=== PATIENT | female | born 1970 | race Caucasian/White ===

== ENCOUNTER 2019-06-11 15:56 | Emergency (ER) | payer OTHER, MEDICARE ==
[~2019-06-11] VITALS: Ht 160 cm; Wt 68.0 kg
[~2019-06-11 15:56] MED LIST: LORA1 PO; Minipress1 MG PO; Naprosyn500 MG PO; Robaxin500 MG PO; TRAM50 PO
[2019-06-11 17:45] LABS: BASOPHILS ABSOLUTE AUTO 0.03 K/mm3 (0.00-0.23); BASOPHILS PERCENT AUTO 0 % (0-2); EOSINOPHILS PERCENT AUTO 1 % (0-6); Hematocrit 40.2 % (33.0-51.0); Hemoglobin 13.2 g/dL (11.5-16.0); IMMATURE GRAN ABSOLUTE AUTO 0.02 K/mm3 (0.00-0.10); IMMATURE GRAN PERCENT AUTO 0 % (0-1); LYMPHOCYTES ABSOLUTE AUTO 1.74 K/mm3 (0.84-5.20); LYMPHOCYTES PERCENT AUTO 18 % (21-46); MONOCYTES ABSOLUTE AUTO 0.69 K/mm3 (0.16-1.47); MONOCYTES PERCENT AUTO 7 % (4-13); Mean Corpuscular HGB 29.5 pg (26.0-34.0); Mean Corpuscular HGB Conc 32.8 g/dL (31.5-36.5); Mean Corpuscular Volume 90 fL (80-100); Mean Platelet Volume 10.2 fL (9.1-12.4); NEUTROPHILS PERCENT AUTO 74 % (41-73); Platelet Count 277 K/mm3 (150-400); RDW Coefficient Variation 12.1 % (11.7-14.2); RDW Standard Deviation 39.9 fL (35.1-46.3); Red Blood Cell Count 4.47 M/mm3 (3.80-5.20); White Blood Cell Count 9.78 K/mm3 (4.00-11.30)
[2019-06-11 18:01] LABS: Alanine Aminotransfer (ALT/SGP 14 U/L (12-78); Albumin, Blood 3.9 g/dL (3.4-5.0); Albumin/Globulin Ratio 1.3 (0.8-1.8); Alk Phos 49 U/L (50-136); Anion Gap 6 mmol/L (6-16); Aspartate Aminotrans (AST/SGOT 13 U/L (12-37); Bilirubin, Total 0.8 mg/dL (0.1-1.0); Blood Urea Nitrogen 15 mg/dL (8-24); Bun/Creatinine Ratio 15.1 (12.0-20.0); CO2, Blood 27 mmol/L (21-32); Calcium, Blood 9.2 mg/dL (8.5-10.1); Chloride, Blood 107 mmol/L (98-108); Creatinine, Blood 0.99 mg/dL (0.40-1.00); Ethanol (Alcohol), Blood, Med <3 mg/dL; Globulin, Blood 3.1 g/dL (2.2-4.0); Glomerular Filtration Rate >60 (60-); Glucose, Blood 75 mg/dL (70-99); Potassium, Blood 3.9 mmol/L (3.5-5.5); Sodium, Blood 140 mmol/L (136-145)
[2019-06-11 18:12] LABS: U Amphetamine Screen Not Detected; U Barbituate Screen Not Detected; U Benzodiazapine Screen Not Detected; U Buprenorphine Screen Not Detected; U Cannabinoids Screen Not Detected; U Cocaine Screen Not Detected; U Methadone Screen Not Detected; U Methamphetamine Screen Not Detected; U Opiates Screen Not Detected; U Oxycodone Screen Not Detected; U Phencyclidine Screen Not Detected; U Propoxyphene Screen Not Detected
== END 2019-06-11 18:47 | disposition home or self-care (01) ==
LOC: ER 15:56
PROVIDERS: Emergency Medicine
DX: S09.90XA Unspecified injury of head, initial encounter (principal); S80.12XA Contusion of left lower leg, initial encounter; S20.219A Contusion of unspecified front wall of thorax, initial encounter; V43.52XA Car driver injured in collision with other type car in traffic accident, initial encounter; Z88.0 Allergy status to penicillin; Z79.899 Other long term (current) drug therapy; F31.9 Bipolar disorder, unspecified; F17.200 Nicotine dependence, unspecified, uncomplicated
CPT/HCPCS: 36415; 70450; 71046; 73590; 80053; 82947; 85025; 99284-25; G0480

== ENCOUNTER 2019-06-24 10:16 | Emergency (ER) | payer OTHER, MEDICARE ==
[~2019-06-24] VITALS: Ht 160 cm; Wt 63.5 kg
[2019-06-24] MEDS ORDERED: KETO10 PO (11:22)
[2019-06-24] MEDS ORDERED: CYCL10 PO (11:22)
[2019-06-24] MEDS ORDERED: Mobic15 MG PO (11:26)
== END 2019-06-24 11:33 | disposition home or self-care (01) ==
LOC: ER 10:16
DX: M23.92 Unspecified internal derangement of left knee (principal); S80.12XD Contusion of left lower leg, subsequent encounter; F31.9 Bipolar disorder, unspecified; F20.9 Schizophrenia, unspecified; E16.2 Hypoglycemia, unspecified; F17.200 Nicotine dependence, unspecified, uncomplicated; Z88.0 Allergy status to penicillin; Z79.1 Long term (current) use of non-steroidal anti-inflammatories (NSAID); Z79.899 Other long term (current) drug therapy; V49.40XD Driver injured in collision with unspecified motor vehicles in traffic accident, subsequent encounter
CPT/HCPCS: 99283

== ENCOUNTER 2019-06-28 18:33 | Emergency (ER) | payer OTHER, MEDICARE ==
[~2019-06-28] VITALS: Ht 160 cm; Wt 68.0 kg
[~2019-06-28 18:33] MED LIST changes: +CYCL10 PO; +KETO10 PO; +Mobic15 MG PO
== END 2019-06-28 20:34 | disposition home or self-care (01) ==
LOC: ER 18:33
DX: S93.402A Sprain of unspecified ligament of left ankle, initial encounter (principal); S93.401A Sprain of unspecified ligament of right ankle, initial encounter; F31.9 Bipolar disorder, unspecified; F20.9 Schizophrenia, unspecified; K21.9 Gastro-esophageal reflux disease without esophagitis; F17.200 Nicotine dependence, unspecified, uncomplicated; Z88.0 Allergy status to penicillin; V89.2XXA Person injured in unspecified motor-vehicle accident, traffic, initial encounter
CPT/HCPCS: 73610; 99283-25

== ENCOUNTER 2020-01-12 19:27 | Emergency (ER) | payer MEDICARE, OTHER ==
[~2020-01-12] VITALS: Ht 160 cm; Wt 68.0 kg
[2020-01-12] MEDS ORDERED: LATUDA20 MG (20:21)
[2020-01-12] MEDS ORDERED: PRAZ2 (20:21)
[2020-01-12 20:55] LABS: Influenza A Negative (NEGATIVE); Influenza B Negative (NEGATIVE)
[2020-01-12] MEDS ORDERED: ALBU90OI INH (21:13)
[2020-01-12] MEDS ORDERED: Norco 5-325 Ta1 EACH PO (21:13)
== END 2020-01-12 21:53 | disposition home or self-care (01) ==
LOC: ER 19:27
PROVIDERS: Physician Assistant
DX: J06.9 Acute upper respiratory infection, unspecified (principal); J98.01 Acute bronchospasm; F31.9 Bipolar disorder, unspecified; K21.9 Gastro-esophageal reflux disease without esophagitis; F17.210 Nicotine dependence, cigarettes, uncomplicated
CPT/HCPCS: 71046; 87804; 94640; 99284-25; A9270

== ENCOUNTER 2024-10-23 14:35 | Emergency (ER) | payer MEDICARE ==
[~2024-10-23] VITALS: Ht 162.6 cm; Wt 70.3 kg
[~2024-10-23 14:35] MED LIST changes: +ALBU90OI INH; +LATUDA20 MG; +Norco 5-325 Ta1 EACH PO; +PRAZ2
[2024-10-23 15:47] VITALS: BP 123/89
[2024-10-23 16:06] LABS: Source, Urine Clean Catch
[2024-10-23 16:09] LABS: Appearance, Urine Clear (Clear); Bilirubin, Urine Neg (Neg); Blood, Urine Neg (Neg); Color, Urine Yellow (P-Yellow); Glucose Qualitative, Urine Neg (Neg); Ketones, Urine Neg (Neg); Leukocyte Esterase, Urine 1+ (Neg); Nitrite, Urine Neg (Neg); Protein, Urine 1+ (Neg); Specific Gravity, Urine 1.025 (1.003-1.022); Urobilinogen, Urine NORM (Normal)
[2024-10-23 16:17] LABS: Mucus Light (0-Heavy)
[2024-10-23 16:18] LABS: Bacteria Mod /hpf; Hyaline Casts 0-2 /lpf (0-2); Red Blood Cells, Urine Not Seen /hpf (0-2); Squamous Epithelial Cells Few /hpf (Few)
[2024-10-23] MEDS ORDERED: Phenazopyridine HCl 100 MG Tab PO ONE (16:45)
[2024-10-23] MEDS ORDERED: Trimethoprim/Sulfamethoxazole DS Tab PO ONE (16:45)
[2024-10-23] MEDS ORDERED: Pyridium100 MG PO (16:46)
[2024-10-23] MEDS ORDERED: BACTRIM DS TAB1 EAC1 PO (16:46)
== END 2024-10-23 17:37 | disposition home or self-care (01) ==
LOC: ER 14:35
PROVIDERS: Physician Assistant
DX: R10.32 Left lower quadrant pain (principal); F17.210 Nicotine dependence, cigarettes, uncomplicated; Z88.0 Allergy status to penicillin; Z79.899 Other long term (current) drug therapy
CPT/HCPCS: 81001; 87086; 99283; A9270